=== PATIENT | female | born 1935 | race Caucasian/White ===

== ENCOUNTER → 2017-10-05 14:23 | Observation (INO) ==
[2017-10-03 17:54] VITALS: BMI 20.2
[2017-10-03] MEDS: NS 1,000 ML IV SCH (18:02)
[2017-10-03] MEDS: NOZIN NASAL SWAB NAS ONE ×2 (18:06→19:25)
--- NOTE | 2017-10-03 20:56 | Orthopedic History & Physical ---
Orthopedic HPI - HPI Comments 82 yo lady who suffered a right distal radius fracture when she fell in her garden on 10/03/17. She had immediate pain and deformity of the right wrist. Pt went to the ER in [place] and was found to have a displace fracture of the distal radius but was N/V intact. She was placed in a splint and our office was called. She was given IV Dilaudid for the pain but it caused significant nausea and vomiting. She was given Zofran and Reglan which caused some sedation and dry mouth. She did not feel comfortable going home because of these symptoms and pain. We decided to have [place] come [place] [facility] [place] we are planning ORIF of the distal radius tomorrow. Initially, she was going to come by private car, but I was notified later (by Zoila Motta NP) that they decided on an ambulance instead. Pt denies other injury with this fall and had no LOC. She has otherwise been healthy and rarely goes to the doctor. Pt admits to being on Fosamax and Relpax in the past. She thinks she had a bone density in the last year at a health fair. [facility] Patient Stated Medical History Other Cardiology Yes: leaky valves Medical History Updates: HTN,. Hx of osteoprosis Surgical History: Hysterectomy 1983. Meckel's Diverticulum surgery 1979. Breast Bx. Colonoscopy 2016. - Social History Smoking status: Never smoker Review of Systems - Constitutional Constitutional: Absent: chills, fever(s), headache(s), night sweats, weakness, dizziness - EENT Ears, nose, mouth, throat: Absent: headaches, lightheadedness, head injury - Cardiovascular Cardiovascular: Absent: chest pain, palpitations, syncope, dyspnea on exertion - Respiratory Respiratory: Absent: cough, dyspnea on exertion, wheezing - Gastrointestinal Gastrointestinal: Present: dyspepsia (Rare. Occas burps something but quickly resolves. Takes no medicine for this.). Absent: abdominal pain, change in bowel habits (Denies constipation but states she only has a BM every 2-3 days.) - Genitourinary Genitourinary General: Present: other (No dysuria). Absent: chills, fever(s) - Musculoskeletal Musculoskeletal: Present: as per HPI - Neurological Neurological: Present: frequent falls. Absent: headache(s), numbness, paresthesias, sensory deficit, tingling, change in strength, paralysis/paresis Medications Home Medications Medication Instructions Recorded Confirmed Type Lisinopril/Hctz 03/15.5 [Prinzide 1 tab PO DAILY 10/03/17 10/03/17 History 03/15.5] Potassium 99 mg PO DAILY 10/03/17 10/03/17 History Allergies Allergy/AdvReac Type Severity Reaction Status Date / Time No Known Allergies Allergy Verified 10/03/17 17:52 Exam - Constitutional Vital Signs: Temperature 98.1 F 10/03/17 17:43 Pulse Rate 62 10/03/17 19:32 Respiratory Rate 16 10/03/17 19:32 Blood Pressure 180/73 H 10/03/17 17:43 Pulse Oximetry 98 10/03/17 19:32 General: cooperative, healthy appearing, no acute distress, well developed Nutritional Appearance: thin Orientation: alert - Psych Mood: normal Affect: normal Attitude: cooperative - RUE General: other (Currently in a splint and skin and wrist are not visible.) Skin: other (the exposed skin appears normal.) Neurological: no deficits, normal to light touch - Labs Result Diagrams: 10/04/17 04:07 10/03/17 18:14 Abnormal lab results 10/03/17 Range/Units 18:14 BUN 18.0 H (7-17) MG/DL Glucose 177 H (65-110) MG/DL Calculated Osmolality 281 H (261-280) MOSM/KG Orthopedic Assessment and Plan (1) Fracture of right distal radius Status: Acute Qualifiers: Encounter type: initial encounter Fracture type: closed Assessment and Plan: Admitted last evening as out patient for expected ORIF on 10/04/17. Dr Espinal met with Viktoriya this morning and discussed the dx, treatment options and recommendations. Will plan on ORIF of the distal radius on 10/04/17. Risk vs benefits and possible complications were all discussed. Post operative recovery was also reviewed. Questions were answered to the pts satisfaction. The extremity was marked. We will see how she does after surgery before considering discharge later this after noon. Hospital Course Summary Disclaimer: The visit summary below is not to be considered part of the above Progress Note.
[2017-10-04] MEDS: NS 1,000 ML IV SCH ×4 (05:27→22:08)
[2017-10-04] MEDS: MORPHINE SULFATE 10 MG SYRINGE IVP PRN ×2 (10:37→13:06)
--- NOTE | 2017-10-04 13:19 | Anesthesia Preoperative Report ---
Anesthesia Preoperative Record - Date and Time Date: 10/04/17 Preoperative Diagnosis: Right Distal Radius Fracture Proposed Procedure: ORIF right distal radius NPO Since Date: 10/04/17 NPO Since Time: 09:00 (Garret) Allergies/Adverse Reactions: Allergies Allergy/AdvReac Type Severity Reaction Status Date / Time No Known Allergies Allergy Verified 10/03/17 17:52 - Vital Signs Vital Signs: Temperature 97.9 F 10/04/17 08:00 Pulse Rate 58 L 10/04/17 08:00 Respiratory Rate 16 10/04/17 10:37 Blood Pressure 128/66 10/04/17 08:00 Pulse Oximetry 100 10/04/17 08:00 Height and Weight: Height 1.46 m Weight 44.4 kg Body Mass Index 20.2 - Medications Inpatient Medications: Current Medications Hydrocodone Bitart/Acetaminophen ([place] 7.5/325) 1 - 2 tab PO Q4H PRN PRN Reason: Pain Last Admin: 10/04/17 02:39 Dose: 2 tab Sodium Chloride (Normal Saline) 1,000 mls @ 75 mls/hr IV .[id number] ROMAN Last Admin: 10/04/17 06:23 Dose: Not Given Morphine Sulfate (Morphine Sulfate Inj) 2 - 10 mg IVP Q1H PRN PRN Reason: Pain Last Admin: 10/04/17 13:06 Dose: 2 mg Ondansetron HCl (Zofran) 4 mg IVP Q6H PRN PRN Reason: Nausea &/or vomiting Scopolamine (Transderm-Scop Patch) 1 mg TD Q3D PRN PRN Reason: Nausea Home Medications: Home Medications Medication Instructions Recorded Confirmed Type Lisinopril/Hctz 1012.5 [Prinzide 1 tab PO DAILY 10/03/17 10/03/17 History 1012.5] Potassium 99 mg PO DAILY 10/03/17 10/03/17 History Is Patient on Beta Contreras?: No - Medical History Respiratory: Reports: Dyspnea (at times with exertion) Cardiovascular: Reports: Hypertension, Other (leaky valves) - Surgical History HEENT Surgeries: Reports: Eye Surgery (cataract removal madelin) Reproductive Surgery/Treatment: Reports: Hysterectomy (1983) Anesthesia Reactions: None Hx Family Anesthesia Reaction: No History of Motion Sickness: No - Social History Smoking Status: Never smoker Hx Chewing Tobacco Use: No Second Hand Exposure: No - Pertinent Findings Laboratory: CBC and BMP 10/04/17 04:07 10/03/17 18:14 BMP 10/03/17 18:14 Sodium 143 Potassium 4.5 Chloride 106 Carbon Dioxide 26 BUN 18.0 H Creatinine 0.9 Glucose 177 H Calcium 9.3 EKG: Sinus Rhythm - Physical Exam Respiratory Exam: Present: lungs clear Cardiovascular Exam: Present: regular rate and rhythm - Airway Assessment Mallampati Score: II TMD: 3 Fingerbreadths Neck Extension: good - ASA ASA Score: 2 - Plan Anesthesia: General TIVA - Discussion Discussion: Discussed risks/options/alternatives of anesthesia and questions answered. Patient consents. Nursing pain assessment noted. Present for Discussion: spouse Attestation Statement: Prior to the delivery of any anesthetic medication, I examined the patient, developed the plan, obtained the patient's consent and discussed the risk and benefits of the procedure with the patient/guardian. - Additional Information Seen by Anesthesia: Yes
--- NOTE | 2017-10-04 14:38 | Anesthesia Procedure Note ---
Peripheral Nerve Blockade - Procedure Physician: aCrlos Espinal MD Date: 10/04/17 Surgical Procedure: ORIF right distal radius Discussion: Discussed risks/options/alternatives of anesthesia and questions answered. Patient consents. Nursing pain assessment noted. Block Start: 14:31 Block Stop: 14:34 Blocked Employed: Single Injection, Other (Supraclavicular) Indication: Post-Operative Pain Approach: Right Side Confirmed Position: Supine, Semi-Redding Patient: Consent, Risks/Benefits Discussed, Informed, Post Block Act. Discussed IV Sedation: Yes Midazolam (mg): 1 Initial Vital Signs: Temperature 98.1 F 10/03/17 17:43 Temperature Source Oral 10/03/17 17:43 Pulse Rate 62 10/03/17 17:43 Respiratory Rate 16 10/03/17 17:43 Blood Pressure 180/73 H 10/03/17 17:43 Blood Pressure Mean 108 10/03/17 17:43 Blood Pressure Position Supine 10/03/17 17:43 Pulse Oximetry 100 10/03/17 17:43 Oxygen Delivery Method 10/03/17 17:43 Post Vital Signs: Temperature 97.9 F 10/04/17 08:00 Pulse Rate 58 L 10/04/17 08:00 Respiratory Rate 16 10/04/17 10:37 Blood Pressure 128/66 10/04/17 08:00 Pulse Oximetry 100 10/04/17 08:00 Initial Pain Pain Score: 0 Post Block Pain Score: 0 Prep: Chlorhexadine/ETOH Ultrasound Used?: Yes - Injectate Ropivacaine (%): 0.5 Ropivacaine (mL): 30 Was Epi 1:200,000 Used?: No Injection: Injection made incrementally with constant monitoring and aspiration every ml
--- NOTE | 2017-10-04 16:51 | Anesthesia Postoperative Note ---
- Date and Time Date: 10/04/17 Time: 16:51 - Status Patient Participated in Evaluation: Patient Participated in Person Vital Signs: Temperature 97.9 F 10/04/17 08:00 Pulse Rate 62 10/04/17 15:00 Respiratory Rate 16 10/04/17 15:00 Blood Pressure 125/57 10/04/17 14:55 Pulse Oximetry 96 10/04/17 15:00 Respiratory Function: Airway Patent Cardiovascular Function: Regular Pulse EKG: Sinus Rhythm Mental Status: Lethargic Pain Intensity: 0 Hydration: IV Infusing Complications During Recover: None Apparent - Follow-Up Instructions Instructions: Per Surgeon
--- NOTE | 2017-10-04 17:03 | Remote Fluorsocopy Report ---
Indication: ORIF right wrist PROCEDURE: RF wrist RT 2 view: Encounter: Initial Comparison: None Findings: Seven fluoroscopic spot images are submitted for interpretation. Images show open reduction and internal fixation of the distal radial fracture with placement of a volar plate and multiple screws. Improved alignment of the fracture fragments. Impression: Fluoroscopy as above. Fluoroscopy time is 87 seconds. Fluoroscopy dose is 210.6 mRad. .
[2017-10-04] MEDS: CEFAZOLIN 1 G in NS 100 ML IV SCH (22:09)
[2017-10-05] MEDS: HYDROCODONE/APAP 7.5 MG/325 MG TABLET PO PRN ×3 (01:17→12:34)
[2017-10-05] MEDS: NS 1,000 ML IV SCH ×2 (01:18→10:00)
[2017-10-05] MEDS: CEFAZOLIN 1 G in NS 100 ML IV SCH (06:22)
[2017-10-05 07:39] VITALS: TEMP 99.2
--- NOTE | 2017-10-05 08:26 | Operative Note ---
DATE OF PROCEDURE 10/04/2017 PREOPERATIVE DIAGNOSIS Right intraarticular displaced distal radius fracture with more than three fragments. POSTOPERATIVE DIAGNOSIS Right intraarticular displaced distal radius fracture with more than three fragments with DRUJ injury. PROCEDURE PERFORMED Open reduction internal fixation of right distal radius intraarticular fracture with pinning of the DRUJ. SURGEON Carlos Espinal MD ANESTHESIA General. COMPLICATIONS None. EBL AND FLUIDS Please see Anesthetic Record. DESCRIPTION OF PROCEDURE Mrs. Arceo and her right wrist were identified and marked in the preoperative holding area. She was brought back to the operating suite and placed supine on the operating table. She was placed under general anesthesia. The right upper extremity was prepped and draped in my normal sterile fashion. Time-out was performed. The arm was exsanguinated and the tourniquet inflated to 250 mmHg. Fluoroscopic imaging was used to confirm the fracture site. It was intraarticular. There was quite a bit of posterior comminution. A modified approach of Daryl was utilized, dissecting sharply over the FCR tendon. The FCR tendon was then retracted ulnarly and the inferior sheath was divided. The FPL was retracted as well as pronator quadratus and Hohmann retractors were placed. The fracture site was easily identified. It did have an intraarticular split with a separate radial styloid fragment. It was easily reduced with manual manipulation. I did place a K-wire through the radial styloid to help hold the reduction and centered a distal radius locking plate with a small width centrally over the distal radius. First screw was placed in a nonlocking fashion in the oblong hole. The second screw was placed distally, also nonlocking, to help bring the bone back to the plate and help regain a lateral tilt. The remaining screws were placed in a locking fashion. The bone was felt to be very soft and the second nonlocking screw was replaced with a locking screw. With rotation of the arm there was an obvious pop. This was the DRUJ. The ulna was easily subluxed dorsally completely out of its groove, and for this reason I held the wrist in a neutral position and placed a 0.045 K- wire from ulnar to radial. This held the DRUJ solid. The wound was thoroughly irrigated and fluoroscopic images were again taken to confirm fracture reduction as well as hardware placement. The wrist joint itself moved freely without crepitance. After thorough irrigation, the wound was closed in layers with 2-0 Vicryl and a 4-0 Monoderm in the skin. This patient will placed in a sugar-tong splint. Drapes will be removed, tourniquet let down, and she will be allowed to awaken from general anesthesia and taken to the recovery room under the care of Anesthesia. She tolerated the procedure well. There were no complications. TAN
--- NOTE | 2017-10-05 09:10 | Orthopedic Progress Note ---
Date: Date: 10/05/17 Time: 905 Subjective/Severity of Illness: Viktoriya is having moderate pain. No numbness or tingling in her fingers. She has some nausea but is hungry. No BM yet, but she states it is common for her to go several days without a BM. Orthopedic Exam Vital signs: Temperature 99.2 F 10/05/17 07:38 Pulse Rate 71 10/05/17 07:38 Respiratory Rate 14 10/05/17 07:38 Blood Pressure 143/66 H 10/05/17 07:38 Pulse Oximetry 95 10/05/17 07:38 - Constitutional General Appearance: Present: alert, cooperative, mild distress - Respiratory Exam Present: non-labored - Cardiovascular Exam Present: other (Radial pulse intact.) Capillary Refill: < 2-3 Seconds - Extremities Exam Present: pulses intact, normal capillary refill. Absent: cyanosis - Dressing Dressing: dry, intact - Neurological Exam Present: intact to light touch, no deficits - Psychiatric Exam Present: alert - Labs Result Diagrams: 10/05/17 04:17 10/05/17 04:17 Abnormal lab results 10/05/17 10/05/17 Range/Units 04:17 04:17 RBC 2.84 L (4.00-5.20) M/MM3 Hgb 9.7 L (12-16) GM/DL Hct 30.1 L (36-46) % MCV 106.0 H (80-100) UM3 MCH 34.2 H (26-34) UUG MPV 9.0 L (9.4-12.4) UM3 Neut % (Auto) 74.7 H (33-66) % Lymph % (Auto) 16.7 L (23-45) % Chloride 113 H D (98-107) MEQ/L Carbon Dioxide 21 L (22-30) MEQ/L Calcium 7.7 L D (8.4-10.2) MG/DL H & H 10/04/17 10/05/17 Range/Units 04:07 04:17 Hgb 10.4 L 9.7 L (12-16) GM/DL Hct 30.7 L 30.1 L (36-46) % Orthopedic Assessment and Plan (1) Fracture of right distal radius Status: Acute Qualifiers: Encounter type: initial encounter Fracture type: closed Assessment and Plan: No nausea at this time. She will try some pain meds and see how she tolerates them. Continue to elevate and use ice. We will see how she does with PT / OT and then plan discharge later today. Hospital Course Summary Disclaimer: The visit summary below is not to be considered part of the above Progress Note.
[2017-10-05 11:34] VITALS: BP 117/67; PULSE 60; RESP 16; O2SAT 96
[~2017-10-05 14:23] MED LIST: CEFAZOLIN 1 G INJECTION IVP ONE; CEFAZOLIN 1 G in NS 100 ML IV SCH; HYDROCODONE/APAP 7.5 MG/325 MG TABLET PO PRN; HYDROMORPHONE 2 MG/ML INJECTION IVP PRN; LISINOPRIL/HCTZ 10/12.5 MG TABLET PO SCH; METOCLOPRAMIDE 10mg/2ml INJECTION IVP PRN; MIDAZOLAM 2mg/2ml INJECTION IVP PRN; MORPHINE SULFATE 10 MG/ML VIAL IVP PRN; ONDANSETRON 4 MG/2 ML INJECTION IVP PRN; PROPOFOL 20 ML ONE; PROPOFOL 500 MG/50 ML VIAL ONE; ROPIVACAINE 0.5% (5mg/ml) 30ml INJ ONE; SCOPOLAMINE 1mg/3 days PATCH (Eq. 1.5 Patch) TD PRN; SENNA + DOCUSATE TABLET PO PRN
== END | disposition home or self-care (01) ==
LOC: SRG
PROVIDERS: ADMIT Orthopaedic Surgery; ATTEND Orthopaedic Surgery